=== PATIENT | male | born 1955 | race Caucasian/White ===

== ENCOUNTER 2018-09-11 12:56 | Emergency (ER) | payer MEDICARE, OTHER ==
--- NOTE | 2018-09-11 13:44 | ERPHSYRPT ---
- History of Present Illness Time Seen by Provider: 09/11/18 13:15 Source: patient Exam Limitations: clinical condition Patient Subjective Stated Complaint: stepped off of a curb and twisted right ankle and fell on Friday Triage Nursing Assessment: Pt stated that he was walking at the [employer] in [place] on Friday and didn't notice the curb and walked off of it and twisted right ankle and fell, entire right foot bruised, has kept it elevated for most of the time since accident, pulses normal, vitals wnl, dialysis catheter in left upper arm, did dialysis today, reports hitting forehead on ground but found no markings and it only hurt for approx a minute or two, left knee was sore for a couple of days but now reports no pain in it Physician History: PATIENT WITH A HISTORY OF CHRONIC RENAL FAILURE, HEMODIALYSIS SINCE 2014 SLIPPED OFF CURB AND TWISTED HIS RIGHT ANKLE AND FOOT 6 DAYS AGO. HE COMPLAINS OF PAIN SWELLING WITH BRUISING IN OUTER ANKLE AND FOOT. HAS PAIN UPON WEIGHT BEARING. Method of Injury: direct blow Occurred: days ago (6) Quality: constant Severity of Pain-Max: moderate Severity of Pain-Current: moderate Lower Extremities Pain: foot: right, ankle: right Modifying Factors: Improves With: movement (WEIGHT BEARING) Associated Symptoms: other (PAIN UPON WEIGHT BEARING) Allergies/Adverse Reactions: iodine Allergy (Unknown, Verified 09/11/18 13:19) shellfish derived Allergy (Unknown, Verified 09/11/18 13:19) Home Medications: Prednisone 10 mg [Deltasone 10 mg] 10 mg PO DAILY 08/16/16 [History] Warfarin Sodium 3 mg PO DAILY 08/16/16 [History] Aspirin EC 81 mg [Ecotrin 81 mg] 81 mg PO DAILY 09/11/18 [History] Atenolol 12.5 mg PO DAILY 09/11/18 [History] Atorvastatin Calcium [Lipitor] 20 mg PO HS 09/11/18 [History] Bupropion HCl Xl 150 mg [Wellbutrin XL 150 MG] 300 mg PO DAILY 09/11/18 [ History] Cinacalcet HCl [Sensipar] 60 mg PO DAILY 09/11/18 [History] PANTOPRAZOLE 40 mg Tablet [Protonix 40MG Tablet] 40 mg PO QAM 09/11/18 [ History] Sucroferric Oxyhydroxide [Velphoro] 500 mg PO DAILY 09/11/18 [History] Hx Tetanus, Diphtheria Vaccination/Date Given: No Hx Influenza Vaccination/Date Given: No Hx Pneumococcal Vaccination/Date Given: No - Review of Systems Musculoskeletal: Injury, Joint Swelling, Other (BRUISING) Neurological: No Dizziness, No Focal Weakness, No Sensory Changes Psychological: No Symptoms - Past Medical History Pertinent Past Medical History: Yes (renal failure) Cardiac History: Arrhythmia History: Renal Disease - Past Surgical History Past Surgical History: Yes Genitourinary: Kidney Transplant Other Surgical History: DIALYSIS FISTULA - Social History Smoking Status: Former smoker Exposure to second hand smoke: No Drug Use: none Patient Lives Alone: No () - Nursing Vital Signs Nursing Vital Signs: Initial Vital Signs Temperature 97.8 F 09/11/18 13:00 Pulse Rate 91 H 09/11/18 13:00 Blood Pressure 106/80 09/11/18 13:00 O2 Sat by Pulse Oximetry 98 09/11/18 13:00 Pain Scale Pain Intensity 0 - Physical Exam General Appearance: alert Ankle Exam: right ankle: limited range of motion, pain, soft tissue tenderness ( MODERATE SWELLING RIGHT LATERAL MALLEOLUS, FAINT BLUE TO YELLOW ECCHYMOSIS, NO CREPITUS, NO JOINT LAXITY UPON VARUS VALGUS STRESS,NEGATIVE ANTERIOR DRAW SIGN.) , swelling Foot Exam: right foot: ecchymosis, soft tissue tenderness, swelling (TENDERNESS WITH YELLOWISH ECCHYMOSIS, PROXIMAL TO DISTAL RIGHT 3RD TO 5TH METATARSALS WITH 1+ SWELLING), other (RIGHT PEDIS PULSE 2+) Neuro/Tendon Exam: normal sensation, normal motor functions Mental Status Exam: alert, oriented x 3, cooperative Skin Exam: normal color, warm, dry SpO2 Interpretation: normal SpO2: 98 Oxygen Delivery: Room Air Ordered Tests: Active Orders 24 hr Category Date Time Status Splint STAT Care 09/11/18 14:22 Active ANKLE (3 VIEWS) Stat Exams 09/11/18 13:37 Completed FOOT (MINIMUM 3 VIEWS) Stat Exams 09/11/18 13:36 Completed - Progress Progress Note: 09/11/18 14:37 APPLICATION OF RIGHT ANKLE VELCRO SPLINT Counseled pt/family regarding: diagnosis, need for follow-up, rad results - Departure Time of Disposition: 14:38 Departure Disposition: Home Clinical Impression: CONTUSION/STRAIN RIGHT ANKLE, RIGHT FOOT STRAIN Condition: Stable Critical Care Time: No Referrals: RICHELLE NARAYANAN MD [Primary Care Provider] - Additional Instructions: ELEVATE RIGHT FOOT WHILE SITTING OR SUPINE POSITION FOR 1 WEEK. AMBULATE USING WALKER ASSISTANCE NONWEIGHT BEARING RIGHT FOOT FOR 1 WEEK. TYLENOL EVERY 4 HOURS FOR PAIN. USE VELCRO ANKLE SPLINT FOR COMFORT. CONSULT YOUR PRIMARY CARE PROVIDER FOR FOLLOWUP IN 1 WEEK.
--- NOTE | 2018-09-11 14:04 | XRAY ---
Indication: Pain and swelling following injury one week ago. Comparison: None 3 nonweightbearing views of the right foot demonstrates osteopenia, small plantar heel spur, and extensive scattered vascular calcifications. No other bony, articular, or soft tissue abnormalities.
--- NOTE | 2018-09-11 14:07 | XRAY ---
Indication: Pain and swelling following injury one week ago. Comparison: None 3 views of the right ankle demonstrates osteopenia, small plantar heel spur, and extensive scattered vascular calcifications. No other bony, articular, or soft tissue abnormalities.
[2018-09-11 14:40] VITALS: BP 109/72; PULSE 82
[2018-09-11 14:41] VITALS: O2SAT 98
== END 2018-09-11 14:57 | disposition home or self-care (01) ==
LOC: ED 12:56
DX: S96.911A Strain of unspecified muscle and tendon at ankle and foot level, right foot, initial encounter (principal); X50.1XXA Overexertion from prolonged static or awkward postures, initial encounter; Y93.01 Activity, walking, marching and hiking; Y92.511 Restaurant or cafe as the place of occurrence of the external cause; Z79.01 Long term (current) use of anticoagulants; Z79.899 Other long term (current) drug therapy
CPT/HCPCS: 73610; 73630; 99283; L4386

== ENCOUNTER 2019-11-30 05:14 | Emergency (ER) | payer MEDICARE, OTHER ==
[2019-11-30] MEDS ORDERED: EPINEPHRINE ABBOJECT 1 MG IV ONE (05:16)
[2019-11-30] MEDS ORDERED: Sodium Chloride 0.9% 1000 ML 1,000 ML IV STA (05:19)
[2019-11-30] MEDS ORDERED: ATROPINE SULFATE 1MG SYR ABBOJECT IV ONE (05:20)
[2019-11-30 05:29] LABS: Hemoglobin 9.2 gm/dl (12.5-18.0); Mean Cell Volume 109.9 fl (78-100); Mean Corpuscular Hemoglobin 33.7 pg (26-32); Mean Corpuscular Hgb Concent. 30.7 g/dl (32-36); Mean Platelet Volume 11.7 fl (7.5-11.0); Platelet Count 250 K/mm3 (150-450); Red Blood Count 2.73 M/mm3 (4.1-5.6); Red Cell Distribution Width 15.3 % (11.5-14.0); White Blood Count 17.3 K/mm3 (4.0-10.5)
[2019-11-30 05:40] LABS: ALBUMIN 2.8 g/dL (3.5-5.0); ANION GAP 34.8 MEQ/L (5-15); Creatinine 1 5.69 mg/dL (0.66-1.25); MAGNESIUM 2.5 mg/dL (1.6-2.3); Potassium 5.9 mmol/L (3.5-5.1); Total Protein 5.2 g/dL (6.3-8.2)
[2019-11-30] MEDS ORDERED: Sodium Chloride 0.9% 1000 ML 1,000 ML ONE (05:47)
[2019-11-30 05:55] LABS: ANISOCYTOSIS 1+; BAND 2 % (0.0-2.0); Eosinophil 4 % (0.00-3.0); Lymphocytes 27 % (24-44); Metamyelocyte 1 %; Monocyte 9 % (0.0-12.0); Neutrophils 57 % (36.-66.); Nucleated Red Blood Cell 2 %; Platelet Estimate NORMAL (NORMAL); Poikilocytosis 1+; Polychromasia 1+; Total Cells Counted 100
[2019-11-30 05:56] LABS: PROTIME 116.9 SECONDS (8.83-12.87)
[2019-11-30 06:00] LABS: INR > 10.00 (0.8-3.0)
[2019-11-30 06:01] LABS: VBG CARBOXYHEMOGLOBIN 0.8 % T HGB (0.0-6.9); VBG PO2 58 mm/Hg (25-40); VBG POTASSIUM 5.3 (3.5-5.1)
[2019-11-30 06:02] LABS: VBG PCO2 81 mm/Hg (42-55)
--- NOTE | 2019-11-30 06:12 | ERPHSYRPT ---
- History of Present Illness Time Seen by Provider: 11/30/19 05:15 Source: EMS Exam Limitations: clinical condition Physician History: Per EMS, patient called out to family stating he could not breathe, shortly collapsing thereafter. EMS intubated the patientand gave 2mg total of epinephrine and started compressions for CPR as patient had a faint pulse but was not breathing spontaneously and his heart rate was around 30. Timing/Duration: today, sudden (occured approximately at 04:30-called EMS at 04: 45, who arrived shortly there after) Activities at Onset: rest Quality: other (difficulty breathing) Modifying Factors: Worsens With: nothing Nitro Today/Relief: no nitro taken today Aspirin Treatment Today: 81 mg x 1 Associated Symptoms: shortness of breath, cough (had a cold that started 3 days ago per family), syncope, No nausea, No vomiting, No abdominal pain, No heartburn, No diaphoresis, No chest pain, No fever, No headaches, No loss of appetite, No malaise, No weakness Allergies/Adverse Reactions: iodine Allergy (Unknown, Verified 09/11/18 13:19) shellfish derived Allergy (Unknown, Verified 09/11/18 13:19) Home Medications: Prednisone 10 mg [Deltasone 10 mg] 10 mg PO DAILY 08/16/16 [History] Warfarin Sodium 3 mg PO DAILY 08/16/16 [History] Aspirin EC 81 mg [Ecotrin 81 mg] 81 mg PO DAILY 09/11/18 [History] Atorvastatin Calcium [Lipitor] 20 mg PO HS 09/11/18 [History] Bupropion HCl Xl 150 mg [Wellbutrin XL 150 MG] 300 mg PO DAILY 09/11/18 [ History] Cinacalcet HCl [Sensipar] 60 mg PO DAILY 09/11/18 [History] PANTOPRAZOLE 40 mg Tablet [Protonix 40MG Tablet] 40 mg PO QAM 09/11/18 [ History] Sucroferric Oxyhydroxide [Velphoro] 500 mg PO DAILY 09/11/18 [History] atenoloL [Atenolol] 12.5 mg PO DAILY 09/11/18 [History] Hx Tetanus, Diphtheria Vaccination/Date Given: No Hx Influenza Vaccination/Date Given: No Hx Pneumococcal Vaccination/Date Given: No - Review of Systems Constitutional: No Fever, No Chills Eyes: No Symptoms Ears, Nose, & Throat: No Symptoms Respiratory: Cough (per family), Dyspnea (per EMS and family) Cardiac: Syncope, No Chest Pain, No Edema Abdominal/Gastrointestinal: No Abdominal Pain, No Nausea, No Vomiting, No Diarrhea Genitourinary Symptoms: No Dysuria, No Flank Pain Musculoskeletal: No Back Pain, No Neck Pain Skin: No Rash Neurological: No Dizziness, No Focal Weakness, No Headache, No Sensory Changes Psychological: No Symptoms Endocrine: No Symptoms All Other Systems: Unable due to condition (ROS that are documentated are from EMS and then later from family) - Past Medical History Pertinent Past Medical History: Yes (renal failure) Cardiac History: Arrhythmia, High Cholesterol Musculoskeletal History: Osteoporosis GI Medical History: GERD History: Renal Disease - Past Surgical History Past Surgical History: Yes Genitourinary: Kidney Transplant Other Surgical History: DIALYSIS FISTULA - Social History Smoking Status: Former smoker Exposure to second hand smoke: No Drug Use: none Patient Lives Alone: No () - Physical Exam General Appearance: other (comatose) Eye Exam: other (negative light reflex; no EOM), No PERRL/EOMI Ears, Nose, Throat Exam: other (no signs of head injury) Respiratory Exam: normal breath sounds (with intubation in place) Cardiovascular Exam: capillary refill >3 sec, pulse deficit (no palpable pulses when patient arrived) Gastrointestinal/Abdomen Exam: soft, No distention Male Genitalia Exam: normal genitalia Extremity Exam: other (bilateral feet are cold) Neurologic Exam: other (no movements spontaneous; no reflexes obtained) Skin Exam: warm, dry, No rash, No petechiae, No jaundice SpO2 Interpretation: airway management int. (patient intubated prior to coming into the emergency department) O2 Delivery: Ambu-Bag - Course Nursing assessment & vital signs reviewed: Yes EKG Interpreted by Me: RATE (78), Left [place] Deviation, Right Bundle Branch Block Ordered Tests: Active Orders 24 hr Category Date Time Status EKG-ER Only STAT Care 11/30/19 05:19 Active IV Insertion STAT Care 11/30/19 05:19 Active AMYLASE Stat Lab 11/30/19 05:19 Completed CBC W DIFF Stat Lab 11/30/19 05:19 Completed CMP Stat Lab 11/30/19 05:19 Completed LIPASE Stat Lab 11/30/19 05:19 Completed Lactic Acid Stat Lab 11/30/19 05:19 Results MAGNESIUM Stat Lab 11/30/19 05:19 Completed Manual Differential NC Stat Lab 11/30/19 05:19 Completed PROTIME WITH INR Stat Lab 11/30/19 05:19 Completed TROPONIN Q3H Lab 11/30/19 05:29 Completed TROPONIN Q3H Lab 11/30/19 08:30 Ordered TROPONIN Q3H Lab 11/30/19 11:30 Ordered TROPONIN Q3H Lab 11/30/19 14:30 Ordered TROPONIN Q3H Lab 11/30/19 17:30 Ordered VENOUS BLOOD GAS Stat Lab 11/30/19 05:20 Completed Standby STAT RT 11/30/19 06:04 Completed Medication Summary Generic Name Dose Route Start Last Admin Trade Name Freq PRN Reason Stop Dose Admin Sodium Chloride 1,000 mls @ 999 mls/hr 11/30/19 05:19 Sodium Chloride 0.9% 1000 Ml IV 11/30/19 06:19 .Q1H1M STA Discontinued Medications Generic Name Dose Route Start Last Admin Trade Name Freq PRN Reason Stop Dose Admin Sodium Chloride Confirm 11/30/19 05:47 Sodium Chloride 0.9% 1000 Ml Administered 11/30/19 05:48 Dose 1,000 mls @ ud .ROUTE .STK-MED ONE Lab/Rad Data: Laboratory Result Diagrams 11/30/19 05:19 11/30/19 05:19 Laboratory Results 11/30/19 11/30/19 11/30/19 Range/Units 05:29 05:20 05:19 WBC (4.0-10.5) K/mm3 RBC (4.1-5.6) M/mm3 Hgb (12.5-18.0) gm/dl Hct (42-50) % MCV (78-100) fl MCH (26-32) pg MCHC (32-36) g/dl RDW (11.5-14.0) % Plt Count (150-450) K/mm3 MPV (7.5-11.0) fl Segmented Neutrophils (36.-66.) % Band Neutrophils (0.0-2.0) % Lymphocytes (Manual) (24-44) % Monocytes (Manual) (0.0-12.0) % Eosinophils (Manual) (0.00-3.0) % Metamyelocytes % Nucleated RBCs % Platelet Estimate (NORMAL) RBC Morphology Polychromasia Poikilocytosis Anisocytosis PT 116.9 H (8.83-12.87) SECONDS INR > 10.00 H* (0.8-3.0) pO2/FiO2 Ratio 100.0 % VBG pH 6.80 L* (7.32-7.42) VBG pCO2 at Pat Temp 81 H* (42-55) mm/Hg VBG pO2 at Pat Temp 58 H (25-40) mm/Hg VBG O2 Sat (Chelsy) 66.0 L (95-100) VBG Hemoglobin 9.0 VBG Carboxyhemoglobin 0.8 (0.0-6.9) % T HGB POC Potassium 5.3 H (3.5-5.1) Sodium (137-145) mmol/L Potassium (3.5-5.1) mmol/L Chloride (98-107) mmol/L Carbon Dioxide (22-30) mmol/L Anion Gap (5-15) MEQ/L BUN (9-20) mg/dL Creatinine (0.66-1.25) mg/dL Estimated GFR ML/MIN Glucose (74-106) mg/dL Lactic Acid (0.4-2.0) Calcium (8.4-10.2) mg/dL Magnesium (1.6-2.3) mg/dL Total Bilirubin (0.2-1.3) mg/dL AST (17-59) U/L ALT (0-50) U/L Alkaline Phosphatase (38-126) U/L Troponin I 0.090 H* (0.000-0.034) ng/mL Serum Total Protein (6.3-8.2) g/dL Albumin (3.5-5.0) g/dL Amylase (30-110) U/L Lipase (23-300) U/L 11/30/19 11/30/19 11/30/19 Range/Units 05:19 05:19 05:19 WBC 17.3 H (4.0-10.5) K/mm3 RBC 2.73 L (4.1-5.6) M/mm3 Hgb 9.2 L (12.5-18.0) gm/dl Hct 30.0 L (42-50) % MCV 109.9 H (78-100) fl MCH 33.7 H (26-32) pg MCHC 30.7 L (32-36) g/dl RDW 15.3 H (11.5-14.0) % Plt Count 250 (150-450) K/mm3 MPV 11.7 H (7.5-11.0) fl Segmented Neutrophils 57 (36.-66.) % Band Neutrophils 2 (0.0-2.0) % Lymphocytes (Manual) 27 (24-44) % Monocytes (Manual) 9 (0.0-12.0) % Eosinophils (Manual) 4 H (0.00-3.0) % Metamyelocytes 1 % Nucleated RBCs 2 % Platelet Estimate NORMAL (NORMAL) RBC Morphology ABNORMAL Polychromasia 1+ Poikilocytosis 1+ Anisocytosis 1+ PT (8.83-12.87) SECONDS INR (0.8-3.0) pO2/FiO2 Ratio % VBG pH (7.32-7.42) VBG pCO2 at Pat Temp (42-55) mm/Hg VBG pO2 at Pat Temp (25-40) mm/Hg VBG O2 Sat (Chelsy) (95-100) VBG Hemoglobin VBG Carboxyhemoglobin (0.0-6.9) % T HGB POC Potassium (3.5-5.1) Sodium 136 L (137-145) mmol/L Potassium 5.9 H (3.5-5.1) mmol/L Chloride 88 L (98-107) mmol/L Carbon Dioxide 18 L (22-30) mmol/L Anion Gap 34.8 H (5-15) MEQ/L BUN 53 H (9-20) mg/dL Creatinine 5.69 H (0.66-1.25) mg/dL Estimated GFR 10.7 ML/MIN Glucose 129 H (74-106) mg/dL Lactic Acid 17.0 H (0.4-2.0) Calcium 7.0 L (8.4-10.2) mg/dL Magnesium 2.5 H* (1.6-2.3) mg/dL Total Bilirubin 1.00 (0.2-1.3) mg/dL AST 758 H (17-59) U/L ALT 349 H (0-50) U/L Alkaline Phosphatase 122 (38-126) U/L Troponin I (0.000-0.034) ng/mL Serum Total Protein 5.2 L (6.3-8.2) g/dL Albumin 2.8 L (3.5-5.0) g/dL Amylase 64 (30-110) U/L Lipase 152 (23-300) U/L - Progress Progress: unchanged Air Movement: good Progress Note: 11/30/19 05:13 Patient arrived to the emergency department, intubated by EMS, compressions occurring with 2 mg total of epinephrine given. Patient had a pulse in the 20s no palpable peripheral pulses, no pupillary light reflexes and no spontaneous breathing on his own. Patient had equal breath sounds listening to the anterior lower and upper chest bilaterally. High quality CPR was performed with personnel performing compressions with personnel switching performing compressions every 2 minutes. Spontaneous pulse and peripheral blood pressure achieved at 05:30. Patient was given 2 mg total of atropine and 3 mg total of epinephrine during this round of CPR for resuscitation. At 05:34, patient's pulse decreased and peripheral pulses were not palpable, so CPR was continued compressions and 1 mg of epinephrine and 1 mg of atropine given again. spontaneous pulses and blood pressure were achieved again at 05:38. Patient was not able to maintain blood pressure and pulse on his own without compressions and medications. At 05:45, compressions restarted and 1 mg of atropine and 1 mg of epinephrine given DT saliva the heart rate and loss of pulses centrally and peripherally. Compressions were stopped at 05:50, and no signs of spontaneous respirations, no palpable peripheral pulses, no reflexes were found and no shockable rhythms were seen at 05:55, and patient was pronounced at 05:56. Family had the opportunity to see patient and all questions were answered for the patient's family. Counseled pt/family regarding: lab results, diagnosis - Departure Departure Disposition: (05:56) Clinical Impression: Cardiopulmonary arrest, Condition: Critical Care Time: Yes Critical Care Time(excluding separately billable procedures): Critical 30-74 mins Referrals: RICHELLE NARAYANAN MD [Primary Care Provider] -
[2019-11-30 07:06] VITALS: PULSE 20
== END 2019-11-30 09:41 | disposition expired ==
LOC: ED 05:14
DX: I46.9 Cardiac arrest, cause unspecified (principal)
CPT/HCPCS: 36000; 36415; 80053; 82150; 82805; 83605; 83690; 83735; 84484; 85025; 85610; 93005; 94799; 96360; 99284; 99291; J0171; J0461